=== PATIENT | female | born 1995 | race Caucasian/White ===

== ENCOUNTER 2017-12-08 19:56 | Emergency (ER) | payer MEDICAID ==
[~2017-12-08 19:56] MED LIST: CLIN1CAP6 PO; CONC54TA4 PO; FLON0.053; MISC-146; MULT-65 PO; PRED20 PO; VENTAER INH; Z.0.OXYGEN INH
[2017-12-08 20:04] VITALS: BP 135/96; PULSE 93; RESP 18; TEMP 99
[2017-12-08 20:59] LABS: BASOPHIL # 0.1 TH/MM3 (0-0.2); BASOPHIL % 0.5 % (0.0-2.0); HEMATOCRIT 37.3 % (35.0-46.0); HEMOGLOBIN 12.4 GM/DL (11.6-15.3); LYMPH % 10.8 % (9.0-44.0); LYMPHOCYTE # 1.1 TH/MM3 (1.0-4.8); MEAN CELL VOLUME 94.4 FL (80.0-100.0); MEAN CORPUSCULAR HEMOGLOBIN 31.5 PG (27.0-34.0); MEAN CORPUSCULAR HGB CONC 33.4 % (32.0-36.0); MEAN PLATELET VOLUME 7.9 FL (7.0-11.0); MONO % 6.5 % (0.0-8.0); MONOCYTE # 0.6 TH/MM3 (0-0.9); NEUT % 82.2 % (16.0-70.0); PLATELET COUNT 351 TH/MM3 (150-450); RED BLOOD COUNT 3.95 MIL/MM3 (4.00-5.30); RED CELL DISTRIBUTION WIDTH 15.6 % (11.6-17.2); WHITE BLOOD COUNT 9.8 TH/MM3 (4.0-11.0)
--- NOTE | 2017-12-08 21:12 | PD ---
HPI Chief Complaint: Cold / Flu Symptoms Time Seen by Provider: 20:53 Travel History International Travel<30 days: No Contact w/Intl Traveler<30days: No Traveled to known affect area: No History of Present Illness HPI 22-year-old female with history of Down's syndrome and sleep apnea presents emergency department with her mother with concerns over chest congestion, fever , cough approximate 1 week. Denies shortness of breath, chest pain, nausea, vomiting. States that she had diarrhea today and decided to come to the emergency department. Mother states that her fever was 101.5 prior to leaving the house today and was given Evelina-Moultrie at home. Patient does not currently use inhalers states she has needed this medication previously in youth. Mother states that she often breathes heavy but because of her nasal congestion, she has been breathing a little heavier than normal. Note that patient is a high functioning Down syndrome patient and she is able to hold a job and participate in [employer]. Patient is a good historian and is assisted by her mother. [facility] Past Medical History Autoimmune Disease: No Cardiovascular Problems: No Developmental Delay: No Diminished Hearing: No Genitourinary: No Medical other: Yes (DOWNS SYND) Musculoskeletal: No Neurologic: No Psychiatric: No Respiratory: Yes (NASAL SECRETIONS) Immunizations Current: Yes ?: Not Past Surgical History Tonsillectomy: Yes Other Surgery: Yes (TONSILECTOMY AT 4 YR OLD) Social History Alcohol Use: No Tobacco Use: No Substance Use: No Allergies-Medications (Allergen,Severity, Reaction): Coded Allergies: No Known Allergies (Verified , 11/19/14) Reported Meds & Prescriptions Reported Meds & Active Scripts Active Prednisone 20 Mg Tab 20 Mg PO DAILY 5 Days Ventolin Hfa 18 GM Inh (Albuterol Sulfate) 90 Mcg/Act Aer 2 Puff INH Q4-6H PRN Azithromycin 250 Mg Tab 250 Mg PO DIRECTED Take 2 tabs (500 mg) on day 1 then 1 tab daily x 4 days. Deltasone 20 Mg Tab (Prednisone) 20 Mg Tab 20 Mg PO TID 3 Days Take three tablets day 1, two tablets day 2, and one tablet day 3 Ventolin Hfa (Albuterol Sulfate) 18 Gm Aero 2 Puff INH Q4 * SHAKE WELL BEFORE USE * Clindamycin Hcl (Clindamycin HCl) 300 Mg Cap 300 Mg PO Q8 5 Days Flonase (Fluticasone Propionate) 120 [place]/16 Gm Naspr 1 [place] NA Q24H 90 Days Oxygen (O2) (Miscellaneous Medication) Inha 5 L INH HS-RT PRN Oxygen (O2) (Miscellaneous Medication) Inha 5 L INH DIRECTED PRN 90 Days Use while sleeping, to keep SpO2 > 94% Oxycheck Pulse Oximeter (Misc. Devices) 1 Mis Mis U Reported Multi-Vitamin Daily (Multivitamins) Daily Tab 1 Tab PO DAILY Concerta (Methylphenidate HCl) 54 Mg Tab 54 Mg PO DAILY Review of Systems Except as stated in HPI: all other systems reviewed are Neg Physical Exam Narrative GENERAL: WD, WN, apparent Down's syndrome in no apparent distress, mouth breathing. SKIN: Focused skin assessment warm/dry. HEAD: Atraumatic. Normocephalic. EYES: Pupils equal and round. No scleral icterus. No injection or drainage. ENT: Copious Clear rhinorrhea. Mucous membranes pink and moist. NECK: Trachea midline. No JVD. No lymphadenopathy CARDIOVASCULAR: Regular rate and rhythm. No murmur appreciated. RESPIRATORY: No accessory muscle use. Pleural rub diffuse, scant wheezing, no rales or rhonchi GASTROINTESTINAL: Abdomen soft, non-tender, nondistended. MUSCULOSKELETAL: No obvious deformities. No clubbing. No cyanosis. No edema. Homans sign negative bilaterally NEUROLOGICAL: Awake and alert. No obvious cranial nerve deficits. Motor grossly within normal limits. Normal speech. PSYCHIATRIC: Appropriate mood and affect; insight and judgment normal. Data Data Last Documented VS Vital Signs Date Time Temp Pulse Resp B/P (MAP) Pulse Ox O2 Delivery O2 Flow Rate FiO2 12/08/17 20:42 Room Air 12/08/17 20:04 99.0 93 18 135/96 (109) Orders Orders Influenzae A/B Antigen (12/08/17 20:13) Complete Blood Count With Diff (12/08/17 20:14) Comprehensive Metabolic Panel (12/08/17 20:14) Lipase (12/08/17 20:14) Chest, Pa & Lat (12/08/17 ) Albuterol-Ipratropium Neb (Duoneb Neb) (12/08/17 22:15) Ed Discharge Order (12/08/17 23:19) Labs Laboratory Tests Test 12/08/17 20:35 White Blood Count 9.8 TH/MM3 Red Blood Count 3.95 MIL/MM3 Hemoglobin 12.4 GM/DL Hematocrit 37.3 % Mean Corpuscular Volume 94.4 FL Mean Corpuscular Hemoglobin 31.5 PG Mean Corpuscular Hemoglobin Concent 33.4 % Red Cell Distribution Width 15.6 % Platelet Count 351 TH/MM3 Mean Platelet Volume 7.9 FL Neutrophils (%) (Auto) 82.2 % Lymphocytes (%) (Auto) 10.8 % Monocytes (%) (Auto) 6.5 % Eosinophils (%) (Auto) 0.0 % Basophils (%) (Auto) 0.5 % Neutrophils # (Auto) 8.0 TH/MM3 Lymphocytes # (Auto) 1.1 TH/MM3 Monocytes # (Auto) 0.6 TH/MM3 Eosinophils # (Auto) 0.0 TH/MM3 Basophils # (Auto) 0.1 TH/MM3 CBC Comment DIFF FINAL Differential Comment Blood Urea Nitrogen 14 MG/DL Creatinine 1.02 MG/DL Random Glucose 95 MG/DL Total Protein 7.4 GM/DL Albumin 3.3 GM/DL Calcium Level 8.4 MG/DL Alkaline Phosphatase 89 U/L Aspartate Amino Transf (AST/SGOT) 12 U/L Alanine Aminotransferase (ALT/SGPT) 19 U/L Total Bilirubin 0.3 MG/DL Sodium Level 141 MEQ/L Potassium Level 4.0 MEQ/L Chloride Level 103 MEQ/L Carbon Dioxide Level 32.0 MEQ/L Anion Gap 6 MEQ/L Estimat Glomerular Filtration Rate 69 ML/MIN Lipase 134 U/L MDM Medical Decision Making Medical Screen Exam Complete: Yes Emergency Medical Condition: Yes Differential Diagnosis Upper respiratory infection, pneumonia, influenza Narrative Course 22 old female with a history of Down's syndrome and sleep apnea presents emergency department with her mother with concerns of cough, congestion, clear rhinorrhea, and fever for approximately 1 week. Mother decided to bring her in today because she developed diarrhea. States fever has been well controlled with Tylenol and Evelina-Moultrie. No shortness of breath. Cough has been nonproductive. Vital signs blood pressure 135/96, heart rate 93, temperature 99, respiratory rate 18, SPO2 97% Physical exam findings consistent with a well-developed, well-nourished 22-year- old female in no acute distress. Patient is mouth breathing. Bilateral lung morales with pleural rub with scant wheezing. No rales or rhonchi. Duo nebs 2 administered. Heart rate 97, SaO2 97% on room air. Chest x-ray without acute process. No leukocytosis but slight bandemia. Electrolytes without acute process. I discussed patient's condition with mother and patient. Advised that it is possible patient may be developing pneumonia although her symptoms may be related to a virus as well. Because of patient's history of significant pneumonia requiring admission, I will cover for pneumonia with azithromycin. In addition, patient will have prednisone and an inhaler for increased shortness of breath and persistent cough. Note that patient has not had had antibiotics in a number of years. Patient does have good follow-up with her primary care physician and I suggested she follow-up as discussed. Diagnosis Primary Impression: Bronchitis Referrals: Primary Care Physician Additional Instructions: Take medication as prescribed. If symptoms persist or worsen return to the emergency department immediately. Follow-up with a primary care physician as soon as possible. Scripts Prednisone (Prednisone) 20 Mg Tab 20 MG PO DAILY for 5 Days, #5 TAB 0 Refills Prov: Eve Dyson 12/08/17 Albuterol 18 GM Inh (Ventolin Hfa 18 GM Inh) 90 Mcg/Act Aer 2 PUFF INH Q4-6H Y for SHORTNESS OF BREATH, #1 INHALER 0 Refills Prov: Eve Dysno 12/08/17 Azithromycin (Azithromycin) 250 Mg Tab 250 MG PO DIRECTED for Infection, #6 TAB 0 Refills Take 2 tabs (500 mg) on day 1 then 1 tab daily x 4 days. Prov: Eve Dyson 12/08/17 Disposition: 01 DISCHARGE HOME Condition: Stable Eve Dyson Dec 08, 2017 21:12
[2017-12-08 21:19] LABS: ALBUMIN 3.3 GM/DL (3.4-5.0); AST (GOT) 12 U/L (16-38); BLOOD UREA NITROGEN 14 MG/DL (7-18); CALCIUM 8.4 MG/DL (8.5-10.1); CHLORIDE 103 MEQ/L (98-107); CREATININE 1.02 MG/DL (0.50-1.00); GLOMERULAR FILTRATION RATE 69 ML/MIN (>89); GLUCOSE,RANDOM 95 MG/DL (74-106); SODIUM (NA) 141 MEQ/L (136-145)
[2017-12-08 21:23] LABS: ALKALINE PHOSPHATASE 89 U/L (45-117); ALT (GPT) 19 U/L (9-42); TOTAL BILIRUBIN ADULT 0.3 MG/DL (0.2-1.0); TOTAL PROTEIN 7.4 GM/DL (6.4-8.2)
--- NOTE | 2017-12-08 21:49 | RADRPT ---
EXAM DATE/TIME: 12/08/2017 21:13 [place] COMPARISON: No previous studies available for comparison. INDICATIONS : Fever. Congestion. Short of breath. MEDICAL HISTORY : Downs syndrome. SURGICAL HISTORY : None. ENCOUNTER: Initial ACUITY: 3 days PAIN SCORE: 0/10 LOCATION: Bilateral chest FINDINGS: PA and lateral views of the chest demonstrate the lungs to be symmetrically aerated without evidence of mass, infiltrate or effusion. The cardiomediastinal contours are unremarkable. Osseous structure s are intact. CONCLUSION: 1. No acute cardiopulmonary disease. Senthil Bryant MD on December 08, 2017 at 21:48 Board Certified Radiologist. This report was verified electronically.
[2017-12-08] MEDS: RESP: ALBUTEROL 2.5 MG/IPRATROPIUM 0.5 MG NEB (SCH) INH ×2 (22:30→22:31)
[2017-12-08] MEDS ORDERED: PRED20 PO (23:13)
[2017-12-08] MEDS ORDERED: VENTAER INH (23:13)
[2017-12-08] MEDS ORDERED: AZIT250T3 PO (23:13)
== END 2017-12-09 | disposition home or self-care (01) ==
LOC: NEPC 19:56
DX: J40 Bronchitis, not specified as acute or chronic (principal); R19.7 Diarrhea, unspecified; G47.30 Sleep apnea, unspecified; Q90.9 Down syndrome, unspecified; Z79.51 Long term (current) use of inhaled steroids; Z79.899 Other long term (current) drug therapy
CPT/HCPCS: 71046; 80053; 83690; 85025; 87804; 94640; 94664; 99284